=== PATIENT | male | born 1950 | race Caucasian/White ===

== ENCOUNTER 2017-11-15 07:57 | Observation (INO) | payer OTHER ==
--- NOTE | 2017-11-14 10:27 | Diagnostic Imaging Report ---
PROCEDURE: X-RAY CHEST, TWO VIEWS COMPARISON: None. INDICATIONS: PRE OPERATIVE CHEST X-RAY FOR C-SPINE SURGERY FINDINGS: The lungs are well-inflated. No airspace consolidation, pleural effusion, or pneumothorax. Scattered foci of linear opacity in the lower lobes compatible with subsegmental atelectasis. Tortuosity of the thoracic aorta with an otherwise normal cardiomediastinal contour. No pulmonary edema. No acute osseous abnormality. Multilevel degenerative disc changes of the thoracic spine. CONCLUSION: Subsegmental atelectasis in the lung bases. Otherwise no acute cardiopulmonary abnormality. Dictated by: Hitesh Shane M.D. on 11/14/2017 at 10:36 Electronically approved by: Hitesh Shane M.D. on 11/14/2017 at 10:36
[2017-11-14 10:36] LABS: BASOPHILS # (AUTO) 0.1 (0.0-0.1); BASOPHILS % 0.6 % (0.0-1.0); EOSINOPHILS # (AUTO) 0.2 (0.0-0.4); EOSINOPHILS % 2.4 % (0.0-6.0); HEMATOCRIT 47.3 % (38.2-49.6); HEMOGLOBIN 15.3 g/dL (14.0-18.0); LYMPHOCYTES # (AUTO) 1.9 (1.0-3.2); MEAN CORPUSCULAR HEMOGLOBIN 33.3 pg (28-32); MEAN CORPUSCULAR HGB CONC 32.3 g/dL (31-35); MEAN CORPUSCULAR VOLUME 102.8 fL (81-99); MONOCYTES # (AUTO) 1.3 (0.2-0.8); MONOCYTES % 14.2 % (4.4-11.3); NEUTROPHILS # (AUTO) 5.8 (2.1-6.9); NEUTROPHILS % 62.3 % (38.7-80.0); PLATELET COUNT 200 x10e3/uL (140-360); RED CELL DISTRIBUTION WIDTH 13.8 % (11.7-14.4)
[2017-11-14 10:45] LABS: INR 0.89; PROTHROMBIN TIME 12.5 seconds (11.9-14.5)
[2017-11-14 10:46] LABS: PARTIAL THROMBOPLASTIN TIME 28.1 seconds (23.8-35.5)
[2017-11-14 10:53] LABS: ANION GAP 15.3 mmol/L (8-16); CALCIUM 9.3 mg/dL (8.4-10.2); CREATININE, SERUM 1.23 mg/dL (0.72-1.25); POTASSIUM 4.3 mmol/L (3.5-5.1)
[~2017-11-15] VITALS: Ht 188 cm; Wt 131.5 kg
[~2017-11-15 07:57] MED LIST: ACIDOPHILUS1 EAC4 PO; AMLODIPINE BESY10 MG PO; ASPIR 8181 MG PO; ATENOLOL25 MG PO; ATORVASTATIN CA20 MG PO; CHLORZOXAZONE500 MG PO; COLACE100 MG PO; CRANBERRY PO; FISH OIL 500 M1 EAC1 PO; GARCINIA CAMBOGIA PO; LECITHIN1200 MG PO; LIDOCAINE HCL (LTA) 4 ML SOLN ONE; LORAZEPAM1 MG PO; LOSARTAN POTASS25 MG PO; MAGNESIUM400 MG PO; NIACIN500 MG PO; OXCARBAZEPINE150 MG PO; RANITIDINE HCL150 M1 PO; SERTRALINE HCL100 MG PO; ULTRAM 50MG50 MG PO
[2017-11-15] MEDS ORDERED: CEFAZOLIN SOD 2 GM/D5W 50ML 50 ML IV ONE (08:04)
[2017-11-15] MEDS ORDERED: LIDOCAINE 1% W/EPINEPHRINE 20 ML VIAL ONE (09:51)
[2017-11-15] MEDS ORDERED: BACITRACIN 50,000 UNIT VIAL ONE (09:52)
[2017-11-15] MEDS ORDERED: THROMBIN FOR SOLN 5,000 UNIT VIAL ONE (09:52)
[2017-11-15] MEDS ORDERED: GELATIN SPONGE SZ 100 ONE (09:52)
[2017-11-15] MEDS ORDERED: CEPACOL SORE THROAT LOZENGES PO PRN (12:45)
[2017-11-15] MEDS ORDERED: CARISOPRODOL 350 MG TAB PO PRN (12:45)
[2017-11-15] MEDS ORDERED: PROMETHAZINE HCL (IM) 25 MG/ML VIAL IM PRN (12:45)
[2017-11-15] MEDS ORDERED: MORPHINE SULFATE 5 MG/ML VIAL IM PRN (12:45)
[2017-11-15] MEDS ORDERED: OXYCODONE/ACETAMINOPHEN 5-325 1 EACH TABLET PO PRN (12:45)
[2017-11-15] MEDS ORDERED: MAGNESIUM/ALUMINUM/SIMETHICONE 30 ML UDC PO PRN (12:45)
[2017-11-15] MEDS ORDERED: HYDROMORPHONE 2MG/ML INJ IV PRN (12:45)
[2017-11-15] MEDS ORDERED: ONDANSETRON HCL INJ 2 MG/ML VIAL IV PRN (12:45)
[2017-11-15] MEDS ORDERED: ACETAMINOPHEN 325 MG TAB PO PRN (12:45)
--- NOTE | 2017-11-15 13:31 | Operative Report ---
DATE OF PROCEDURE: November 15, 2017 PREOPERATIVE DIAGNOSIS: C4-C5 and C5-C6 spondylosis and foraminal stenosis with radiculopathy, M50.120. POSTOPERATIVE DIAGNOSIS: C4-C5 and C5-C6 spondylosis and foraminal stenosis with radiculopathy, M50.120. PROCEDURES 1. C4-C5 anterior cervical diskectomy, microsurgical osteophyte resection and allograft fusion, 63871. 2. C5-C6 anterior cervical diskectomy, microsurgical osteophyte resection and allograft fusion, 36720. 3. Preparation of iliac crest allografts, 25935. 4. C4-C5 and C5-C6 anterior cervical plate and screw fixation, 33101. ANESTHESIA: General. INDICATIONS: The patient is a 67-year-old man who presents with broad-based disk osteophyte complexes at C4-5 and C5-6 associated with severe right-sided foraminal stenosis symptomatic with neck pain and right-sided cervical radiculopathy. He was taken to the operating room for a 2-level anterior cervical decompression and fusion. PROCEDURE: After induction of general anesthesia, the patient was placed on the operating table in the supine position. The right side of the neck was prepped and draped in a sterile fashion. The fluoroscopic C-arm was positioned in cross-table lateral orientation. A transverse incision was created on right side of the neck superimposed on the C5 vertebral body as determined by fluoroscopy. The platysma was divided in line with the incision. A subplatysmal dissection was carried out. An avascular plane of dissection was developed medial to the sternocleidomastoid muscle and was followed medial to the carotid sheath to the anterior border of the cervical spine. The deep cervical fascia was opened. The esophagus was retracted to the left. The attachments of the longus coli muscles to the anterolateral aspects of the vertebral bodies of C4, C5 and C6 were divided. The anterior longitudinal ligament was resected. Clifton posts were inserted into C4 and C6. The Clifton distractor was used to distract both disk spaces simultaneously. The anterior annuli of the disks were incised a #11 blade. The contents of both disks were thoroughly evacuated with angled curets and pituitary rongeurs. The posterior osteophytes were meticulously drilled with a 2-mm cutting bur on a high-speed drill until they were completely removed. The posterior annulus of the disk, herniated disk material, and the posterior longitudinal ligament were resected layer by layer until the dura was fully exposed and decompressed. The medial aspects of uncinate processes were resected bilaterally to further expose and decompress the origins of the corresponding nerve roots. After satisfactory decompression had been achieved, the endplates were prepared for fusion. Two pieces of tricortical iliac crest allograft were cut to the size and shapes of the disk spaces and were inserted the disk spaces under distraction and fluoroscopic guidance. The distraction was released, and the distraction posts were removed. A Synthes CSLP variable-type anterior cervical plate was selected and affixed to the vertebral bodies of C4, C5 and C6 with 3 pairs of 14 x 4.35 mm screws. All screw holes were first drilled and tapped under lateral fluoroscopic guidance. All screws were locked with the appropriate locking screws. An excellent construct was obtained. The wound was copiously irrigated with Bacitracin solution. Meticulous hemostasis was secured. Retractor was removed. The platysma was closed with 3-0 Vicryl sutures. The skin was closed with 4-0 Monocryl sutures in subcuticular fashion. Steri-Strips and dressing were applied. The patient was awakened, extubated and taken to the postanesthesia care unit in stable condition. No intraoperative complications were encountered. Estimated blood loss was 20 mL. Job#: [id number]
[2017-11-15] MEDS ORDERED: CEFAZOLIN SOD 1 GM/NS 50ML 50 ML IV SCH (14:00)
[2017-11-15] MEDS: LACTATED RINGER'S 1,000 ML IV SCH ×2 (14:30→21:05)
[2017-11-15 14:42] VITALS: BP 148/80
[2017-11-15] MEDS: OXCARBAZEPINE 300 MG TAB PO SCH ×3 (15:00→20:13)
[2017-11-15] MEDS: TRAMADOL HCL 50 MG TAB PO SCH ×2 (15:00→20:14)
[2017-11-15 15:32] VITALS: BP 148/80
[2017-11-15] MEDS: LORAZEPAM 1 MG TAB PO SCH (16:00)
[2017-11-15] MEDS: DOCUSATE SODIUM 100 MG CAP PO SCH (16:00)
[2017-11-15] MEDS: CEFAZOLIN SOD 1 GM VIAL IV SCH (17:03)
[2017-11-15] MEDS ORDERED: NEOSTIGMINE 5 MG/5ML SYR ONE (18:38)
[2017-11-15] MEDS ORDERED: ACETAMINOPHEN 1000 MG/100 ML IV ONE (18:38)
[2017-11-15] MEDS ORDERED: EPHEDRINE SULFATE INJ 50 MG/10 ML SYR ONE (18:38)
[2017-11-15] MEDS ORDERED: PROPOFOL IV EMULSION 10 MG/ML 20 ML VIAL ONE (18:38)
[2017-11-15] MEDS ORDERED: ONDANSETRON HCL INJ 2 MG/ML VIAL ONE (18:38)
[2017-11-15] MEDS ORDERED: ROCURONIUM BROMIDE 10 MG/ML 5ML VIAL ONE (18:38)
[2017-11-15] MEDS ORDERED: SEVOFLURANE INHAL SOLN 250 ML PEN BTL ONE (18:38)
[2017-11-15] MEDS ORDERED: PHENYLEPHRINE HCL 1% 10 MG/ML VIAL ONE (18:38)
[2017-11-15] MEDS ORDERED: DEXAMETHASONE SOD PHOS INJ 4 MG/ML VIAL ONE (18:38)
[2017-11-15] MEDS ORDERED: LIDOCAINE HCL 2% LOCAL INJ 5 ML SDV VIAL INJ ONE (18:38)
[2017-11-15] MEDS ORDERED: GLYCOPYRROLATE INJ 1MG/ 5 ML SYR ONE (18:38)
[2017-11-15] MEDS ORDERED: MIDAZOLAM HCL 2 MG/2 ML VIAL ONE (18:55)
[2017-11-15] MEDS ORDERED: FENTANYL CITRATE/PF 100MCG/2 ML INJ ONE (18:55)
[2017-11-15 19:35] VITALS: BP 150/78
[2017-11-15 20:00] VITALS: BP 150/78
[2017-11-15] MEDS ORDERED: ATORVASTATIN 20 MG TAB PO SCH (21:00)
[2017-11-15] MEDS ORDERED: ZOLPIDEM TARTRATE 5 MG TAB PO PRN (21:00)
[2017-11-16] VITALS: BP 159/81
[2017-11-16] MEDS: CEFAZOLIN SOD 1 GM VIAL IV SCH ×2 (02:28→10:00)
[2017-11-16 05:00] VITALS: BP 138/69
[2017-11-16] MEDS: LACTATED RINGER'S 1,000 ML IV SCH (05:59)
--- NOTE | 2017-11-16 06:38 | Diagnostic Imaging Report ---
C-SPINE 2 VIEWS AP LATERAL Comparison: None Clinical history: Status post surgery, C4-5 and C5-6 spondylosis Findings: Visualization through C6 on lateral view. Straightening of the normal cervical lordosis, likely positional given presence of a c-collar. Mild prevertebral soft tissue swelling. Postsurgical change status post C4-6 ACDF. Mild C3-4 and incompletely visualized C6-7 degenerative changes with uncovertebral hypertrophy. Impression: Expected postsurgical change status post C4-C6 ACDF. Signed by: Dr Monica Weber MD on 11/16/2017 6:35 AM
[2017-11-16 08:08] VITALS: BP 148/74
[2017-11-16 08:16] VITALS: BP 148/74
[2017-11-16] MEDS: DOCUSATE SODIUM 100 MG CAP PO SCH (08:34)
[2017-11-16] MEDS: LORAZEPAM 1 MG TAB PO SCH (08:34)
[2017-11-16] MEDS: TRAMADOL HCL 50 MG TAB PO SCH (08:35)
[2017-11-16] MEDS: OXCARBAZEPINE 300 MG TAB PO SCH (08:35)
[2017-11-16] MEDS ORDERED: LOSARTAN POTASSIUM 25 MG TAB PO SCH (09:00)
[2017-11-16] MEDS ORDERED: AMLODIPINE BESYLATE 10 MG TAB PO SCH (09:00)
[2017-11-16] MEDS ORDERED: SERTRALINE HCL 100 MG TAB PO SCH (09:00)
== END 2017-11-16 10:19 | disposition home or self-care (01) ==
LOC: OR 07:57 → IMCU 13:35
PROVIDERS: ADMIT Neurological Surgery; ATTEND Neurological Surgery
DX: M50.121 Cervical disc disorder at C4-C5 level with radiculopathy (principal); M47.22 Other spondylosis with radiculopathy, cervical region; M48.02 Spinal stenosis, cervical region; I10 Essential (primary) hypertension; E78.5 Hyperlipidemia, unspecified; F41.8 Other specified anxiety disorders; G47.33 Obstructive sleep apnea (adult) (pediatric); F31.9 Bipolar disorder, unspecified; M19.90 Unspecified osteoarthritis, unspecified site; Z01.810 Encounter for preprocedural cardiovascular examination; Z01.812 Encounter for preprocedural laboratory examination; Z01.818 Encounter for other preprocedural examination; Z79.82 Long term (current) use of aspirin; Z96.653 Presence of artificial knee joint, bilateral; Z88.5 Allergy status to narcotic agent; M50.321 Other cervical disc degeneration at C4-C5 level
CPT/HCPCS: 20931; 22551; 22552; 22845; 36415; 71046; 72040; 77003; 80048; 85025; 85610; 85730; 86850; 86900; 88304; 88311; 93005; C1713 ×4; C1768; G0378 ×2; J0690 ×2; J1100; J1170; J2001; J2250; J2270; J2370; J2405 ×2; J7120

== ENCOUNTER → 2019-01-15 | Outpatient (CLI) | payer OTHER ==
[~2019-01-15] MED LIST changes: -LIDOCAINE HCL (LTA) 4 ML SOLN ONE; +REGADENOSON 0.4 MG/5 ML SYR IV ONE
--- NOTE | 2019-01-21 15:02 | Myoview Stress Test ---
DATE OF STUDY: 01/15/2019 07:35:00 Stress Test - Treadmill ONLY STUDY PERFORMED: Lexiscan stress test. INDICATION: Chest pain. DESCRIPTION OF PROCEDURE: After informed consent, the patient was brought to the stress lab. He was given 11 mCi of technetium-99m Myoview and myocardial perfusion SPECT images were obtained in the horizontal long axis and short axis and vertical long axis. Subsequently, the patient was given 0.4 mg Lexiscan over 10 seconds. The patient was given 33 mCi of technetium-99m Myoview and myocardial perfusion SPECT images were obtained in the horizontal long axis and short axis and vertical long axis. Gating images were also obtained. The patient tolerated the procedure without any complications. REPORT: Baseline EKG shows sinus rhythm at 62 beats per minute. Normal axis. Normal intervals. No acute ST-T changes. Parameters: 1. Resting heart rate is 64 beats per minute. 2. Maximum heart rate is 80 beats per minute. 3. Resting blood pressure 121/72 mmHg. 4. Maximum blood pressure 126/78 mmHg. Reason for termination, end point attained. INTERPRETATION: 1. Negative chest pain. 2. Negative for arrhythmias. 3. Blood pressure response consistent with Lexiscan. 4. No significant ST-T changes seen during Lexiscan infusion compared to baseline. 5. Analysis SPECT images revealed uniform radioisotope uptake in all segments of myocardium without any significant perfusion defects. CONCLUSIONS: 1. No evidence of significant ischemia or infarction on this study. 2. No wall motion abnormalities. 3. Overall ejection fraction is 56%. MD JULIANNA Love/MODL /[id number]
== END ==
LOC: NM 07:23
DX: I10 Essential (primary) hypertension (principal); R94.31 Abnormal electrocardiogram [ECG] [EKG]
CPT/HCPCS: 78452; 93017; A9502; J2785

== ENCOUNTER 2021-12-12 04:08 | Observation (INO) | payer MEDICARE, OTHER ==
[~2021-12-12] VITALS: Ht 188 cm; Wt 151.5 kg
[~2021-12-12 04:08] MED LIST changes: -REGADENOSON 0.4 MG/5 ML SYR IV ONE
[2021-12-12 04:33] LABS: BASOPHILS # (AUTO) 0.1 (0.0-0.1); BASOPHILS % 1.1 % (0.0-1.0); EOSINOPHILS # (AUTO) 0.2 (0.0-0.4); HEMATOCRIT 41.2 % (38.2-49.6); HEMOGLOBIN 13.3 g/dL (14.0-18.0); LYMPHOCYTES # (AUTO) 1.6 (1.0-3.2); LYMPHOCYTES % 23.9 % (18.0-39.1); MEAN CORPUSCULAR HGB CONC 32.3 g/dL (31-35); MEAN CORPUSCULAR VOLUME 102.2 fL (81-99); MONOCYTES # (AUTO) 0.7 (0.2-0.8); NEUTROPHILS % 60.4 % (38.7-80.0); PLATELET COUNT 208 x10e3/uL (140-360); RED BLOOD COUNT 4.03 x10e6/uL (4.3-5.7); RED CELL DISTRIBUTION WIDTH 14.2 % (11.7-14.4)
[2021-12-12 04:44] LABS: CREATININE, SERUM 1.31 mg/dL (0.72-1.25)
[2021-12-12 04:48] LABS: CLARITY,URINE CLOUDY (CLEAR); COLOR,URINE AMBER (YELLOW)
[2021-12-12 04:50] LABS: LEUKOCYTE ESTERASE ,URINE TRACE (NEGATIVE); NITRITE,URINE POSITIVE (NEGATIVE); PROTEIN,URINE DIPSTICK >=300 (NEGATIVE)
[2021-12-12 04:51] LABS: BACTERIA,URINE MANY /HPF; EPITHELIAL CELLS,URINE MODERATE /LPF; KETONES,URINE NEGATIVE (NEGATIVE); RBC,URINE >50 /HPF (0-5); URINE UROBILINOGEN 0.2 mg/dL (0.2 - 1); WBC,URINE (MAN) >50 /HPF (0-5)
[2021-12-12 05:39] LABS: INR 0.95; PROTHROMBIN TIME 13.4 seconds (11.9-14.5)
[2021-12-12 05:40] LABS: PARTIAL THROMBOPLASTIN TIME 28.4 seconds (23.8-35.5)
[2021-12-12] MEDS ORDERED: PIPERACILLIN/TAZOBACTAM 3.375 GM in SODIUM CHLORIDE 0.9% 50ML 50 ML IV SCH (06:00)
[2021-12-12] MEDS ORDERED: ONDANSETRON HCL INJ 2MG/ML 2ML 2 MG/ML VIAL IV PRN (06:00)
[2021-12-12] MEDS ORDERED: HYDROMORPHONE 1MG/1ML INJ IV PRN (06:00)
[2021-12-12] MEDS: SODIUM CHLORIDE 0.9% 1000ML 1,000 ML IV SCH ×3 (06:21→19:52)
[2021-12-12 08:00] VITALS: BP 142/77
[2021-12-12] MEDS ORDERED: QUETIAPINE FUM100 MG PO (08:12)
[2021-12-12] MEDS ORDERED: QUETIAPINE FUMA25 MG PO (08:12)
[2021-12-12] MEDS ORDERED: CYCLOBENZAPRINE5 MG PO (08:15)
[2021-12-12 08:19] VITALS: BP 142/77
[2021-12-12] MEDS ORDERED: TRAMADOL HCL 50 MG TAB PO PRN (08:45)
[2021-12-12] MEDS ORDERED: HYDRALAZINE HCL 20 MG/ML VIAL IV PRN (08:45)
[2021-12-12] MEDS ORDERED: CEFTRIAXONE 1 GM in SODIUM CHLORIDE 0.9% 50ML 50 ML IV SCH (09:00)
[2021-12-12] MEDS: NON-FORMULARY MEDICATION (Ranitidine Hcl 150 MG) PO SCH ×2 (09:00→17:00)
[2021-12-12] MEDS: LORAZEPAM 0.5 MG TAB PO SCH ×3 (09:00→22:04)
[2021-12-12] MEDS: SERTRALINE HCL 100 MG TAB PO SCH (09:00)
[2021-12-12] MEDS: OXCARBAZEPINE 300 MG TAB PO SCH ×4 (11:00→22:05)
[2021-12-12] MEDS: LOSARTAN POTASSIUM 25 MG TAB PO SCH ×2 (11:00→17:00)
[2021-12-12] MEDS: ATENOLOL 50 MG TAB PO SCH (11:00)
[2021-12-12] MEDS: CEFTRIAXONE 1 GM in SODIUM CHLORIDE 0.9% 50ML 50 ML IV SCH (11:00)
[2021-12-12] MEDS: AMLODIPINE BESYLATE 10 MG TAB PO SCH (11:00)
[2021-12-12] MEDS: DOCUSATE SODIUM 100 MG CAP PO SCH ×2 (11:00→17:00)
[2021-12-12] MEDS: QUETIAPINE FUMARATE 25 MG TAB PO SCH (11:00)
[2021-12-12 12:00] VITALS: BP 152/82
[2021-12-12 16:34] VITALS: BP 141/77
[2021-12-12 20:00] VITALS: BP 133/73
[2021-12-12] MEDS ORDERED: ATORVASTATIN 20 MG TAB PO SCH (21:00)
[2021-12-12] MEDS ORDERED: QUETIAPINE FUMARATE 100 MG TAB PO SCH (21:00)
[2021-12-13] VITALS: BP 148/82
[2021-12-13] MEDS: SODIUM CHLORIDE 0.9% 1000ML 1,000 ML IV SCH ×2 (02:00→12:15)
[2021-12-13 03:57] VITALS: BP 138/75
[2021-12-13 05:12] VITALS: BP 138/75
[2021-12-13 06:21] LABS: BASOPHILS % 0.6 % (0.0-1.0); EOSINOPHILS # (AUTO) 0.2 (0.0-0.4); HEMATOCRIT 37.5 % (38.2-49.6); HEMOGLOBIN 12.1 g/dL (14.0-18.0); LYMPHOCYTES # (AUTO) 1.9 (1.0-3.2); LYMPHOCYTES % 26.6 % (18.0-39.1); MEAN CORPUSCULAR HEMOGLOBIN 32.9 pg (28-32); MEAN CORPUSCULAR HGB CONC 32.3 g/dL (31-35); MEAN CORPUSCULAR VOLUME 101.9 fL (81-99); MONOCYTES # (AUTO) 0.9 (0.2-0.8); MONOCYTES % 12.9 % (4.4-11.3); NEUTROPHILS # (AUTO) 3.9 (2.1-6.9); NEUTROPHILS % 56.6 % (38.7-80.0); PLATELET COUNT 166 x10e3/uL (140-360); RED BLOOD COUNT 3.68 x10e6/uL (4.3-5.7); RED CELL DISTRIBUTION WIDTH 14.3 % (11.7-14.4)
[2021-12-13 06:52] LABS: ANION GAP 11.7 mmol/L (8-16); CALCIUM 8.2 mg/dL (8.4-10.2); CREATININE, SERUM 1.24 mg/dL (0.72-1.25); POTASSIUM 3.7 mmol/L (3.5-5.1)
[2021-12-13 08:00] VITALS: BP 154/83
[2021-12-13] MEDS: CEFTRIAXONE 1 GM in SODIUM CHLORIDE 0.9% 50ML 50 ML IV SCH (08:52)
[2021-12-13] MEDS: DOCUSATE SODIUM 100 MG CAP PO SCH (08:53)
[2021-12-13] MEDS: NON-FORMULARY MEDICATION (Ranitidine Hcl 150 MG) PO SCH (08:53)
[2021-12-13] MEDS: LOSARTAN POTASSIUM 25 MG TAB PO SCH (08:53)
[2021-12-13] MEDS: LORAZEPAM 0.5 MG TAB PO SCH ×2 (08:53→15:12)
[2021-12-13] MEDS: AMLODIPINE BESYLATE 10 MG TAB PO SCH (08:54)
[2021-12-13] MEDS: QUETIAPINE FUMARATE 25 MG TAB PO SCH (08:57)
[2021-12-13] MEDS: ATENOLOL 50 MG TAB PO SCH (08:58)
[2021-12-13] MEDS: SERTRALINE HCL 100 MG TAB PO SCH (08:58)
[2021-12-13] MEDS: OXCARBAZEPINE 300 MG TAB PO SCH ×2 (08:58→12:41)
[2021-12-13 12:00] VITALS: BP 139/78
[2021-12-13] MEDS ORDERED: ONDANSETRON HCL 4 MG ORAL DISINTEGRATING TAB PO PRN (12:15)
== END 2021-12-13 15:09 | disposition home or self-care (01) ==
LOC: ER 04:12 → ERHOLD 05:59 → INTOOBSV 05:59 → MED/SURG 07:20
PROVIDERS: ADMIT Internal Medicine; ATTEND Internal Medicine
DX: N13.6 Pyonephrosis (principal); I10 Essential (primary) hypertension; E78.5 Hyperlipidemia, unspecified; E66.9 Obesity, unspecified; Z87.442 Personal history of urinary calculi; N28.1 Cyst of kidney, acquired; Z91.19 Patient's noncompliance with other medical treatment and regimen; D68.9 Coagulation defect, unspecified; N18.9 Chronic kidney disease, unspecified; K57.30 Diverticulosis of large intestine without perforation or abscess without bleeding; Z68.41 Body mass index [BMI] 40.0-44.9, adult; Z20.822 Contact with and (suspected) exposure to COVID-19
CPT/HCPCS: 36415; 74018; 74176; 78707; 80048; 81001; 85025; 85610; 85730; 87086; 99284; A9562; G0378; J0696; J2543; J7030; U0002

== ENCOUNTER → 2021-12-28 | Day surgery (SDC) | payer MEDICARE ==
[~2021-12-28] MED LIST changes: +CEFTRIAXONE 1 GM VIAL ONE; +CYCLOBENZAPRINE5 MG PO; +DEXAMETHASONE SOD PHOS INJ 4 MG/ML SDV ONE; +FENTANYL CITRATE/PF 100MCG/2 ML INJ ONE; +KETOROLAC TROMETHAMINE 30 MG/ML VIAL ONE; +LIDOCAINE HCL 2% LOCAL INJ 5 ML SDV VIAL INJ ONE; +MIDAZOLAM HCL 2 MG/2 ML VIAL ONE; +ONDANSETRON HCL INJ 2MG/ML 2ML 2 MG/ML VIAL ONE; +POVIDONE IODINE 0.05% 0.05 % ML PO ONE; +PROPOFOL IV EMULSION 10 MG/ML 20 ML VIAL ONE; +QUETIAPINE FUM100 MG PO; +QUETIAPINE FUMA25 MG PO; +SEVOFLURANE INHAL SOLN 250 ML PEN BTL ONE; +SODIUM CHLORIDE 0.9% 50ML 50 ML ONE
[2021-12-28 08:30] VITALS: BP 138/76
== END | disposition home or self-care (01) ==
LOC: OR 06:13
PROVIDERS: ATTEND Urology
DX: N20.0 Calculus of kidney (principal); N40.1 Benign prostatic hyperplasia with lower urinary tract symptoms; N13.8 Other obstructive and reflux uropathy; N28.1 Cyst of kidney, acquired; N39.0 Urinary tract infection, site not specified; N13.30 Unspecified hydronephrosis; I12.9 Hypertensive chronic kidney disease with stage 1 through stage 4 chronic kidney disease, or unspecified chronic kidney disease; N18.9 Chronic kidney disease, unspecified; G47.33 Obstructive sleep apnea (adult) (pediatric); E78.5 Hyperlipidemia, unspecified; M19.90 Unspecified osteoarthritis, unspecified site; E66.01 Morbid (severe) obesity due to excess calories; F31.9 Bipolar disorder, unspecified; F41.9 Anxiety disorder, unspecified; Z88.6 Allergy status to analgesic agent; Z01.810 Encounter for preprocedural cardiovascular examination; Z01.812 Encounter for preprocedural laboratory examination; Z01.818 Encounter for other preprocedural examination; Z20.822 Contact with and (suspected) exposure to COVID-19; Z79.82 Long term (current) use of aspirin; Z79.899 Other long term (current) drug therapy; Z68.41 Body mass index [BMI] 40.0-44.9, adult; Z84.1 Family history of disorders of kidney and ureter
CPT/HCPCS: 50590; 71046; 74018; 93005; J0696; J1100; J1885; J2001; J2250; J2405; J2704; J3010; U0002

== ENCOUNTER → 2022-01-11 | Outpatient (CLI) | payer MEDICARE ==
[~2022-01-11] MED LIST changes: -CEFTRIAXONE 1 GM VIAL ONE; -DEXAMETHASONE SOD PHOS INJ 4 MG/ML SDV ONE; -FENTANYL CITRATE/PF 100MCG/2 ML INJ ONE; -KETOROLAC TROMETHAMINE 30 MG/ML VIAL ONE; -LIDOCAINE HCL 2% LOCAL INJ 5 ML SDV VIAL INJ ONE; -MIDAZOLAM HCL 2 MG/2 ML VIAL ONE; -ONDANSETRON HCL INJ 2MG/ML 2ML 2 MG/ML VIAL ONE; -POVIDONE IODINE 0.05% 0.05 % ML PO ONE; -PROPOFOL IV EMULSION 10 MG/ML 20 ML VIAL ONE; -SEVOFLURANE INHAL SOLN 250 ML PEN BTL ONE; -SODIUM CHLORIDE 0.9% 50ML 50 ML ONE
== END ==
LOC: RAD 13:01
PROVIDERS: ATTEND Urology
DX: N20.0 Calculus of kidney (principal)
CPT/HCPCS: 74018

== ENCOUNTER 2022-04-28 05:18 | Observation (INO) | payer MEDICARE ==
[2022-04-26 11:43] LABS: BASOPHILS # (AUTO) 0.1 (0.0-0.1); BASOPHILS % 0.6 % (0.0-1.0); EOSINOPHILS # (AUTO) 0.1 (0.0-0.4); EOSINOPHILS % 1.4 % (0.0-6.0); HEMATOCRIT 41.7 % (38.2-49.6); HEMOGLOBIN 13.8 g/dL (14.0-18.0); LYMPHOCYTES # (AUTO) 1.3 (1.0-3.2); LYMPHOCYTES % 14.6 % (18.0-39.1); MEAN CORPUSCULAR HEMOGLOBIN 32.9 pg (28-32); MEAN CORPUSCULAR HGB CONC 33.1 g/dL (31-35); MEAN CORPUSCULAR VOLUME 99.3 fL (81-99); MONOCYTES # (AUTO) 1.2 (0.2-0.8); MONOCYTES % 13.8 % (4.4-11.3); NEUTROPHILS % 69.1 % (38.7-80.0); PLATELET COUNT 185 x10e3/uL (140-360); RED CELL DISTRIBUTION WIDTH 14.3 % (11.7-14.4)
[~2022-04-28] VITALS: Ht 188 cm; Wt 144.2 kg
[~2022-04-28 05:18] MED LIST changes: +IBUPROFEN400 MG PO
[2022-04-28] MEDS ORDERED: CEFTRIAXONE 1 GM VIAL ONE ×2 (06:12→06:56)
[2022-04-28] MEDS ORDERED: ACETAMINOPHEN/CODEINE 300MG - 30MG TAB PO PRN (07:30)
[2022-04-28 08:18] VITALS: BP 117/67
[2022-04-28 08:20] VITALS: BP 117/67
[2022-04-28] MEDS ORDERED: TRAMADOL HCL 50 MG TAB PO PRN (09:15)
[2022-04-28 12:00] VITALS: BP 145/79
[2022-04-28] MEDS: OXCARBAZEPINE 300 MG TAB PO SCH ×3 (12:48→21:00)
[2022-04-28] MEDS: LORAZEPAM 0.5 MG TAB PO SCH ×2 (14:56→21:00)
[2022-04-28 16:43] VITALS: BP 132/80
[2022-04-28] MEDS: LOSARTAN POTASSIUM 25 MG TAB PO SCH (17:32)
[2022-04-28 20:00] VITALS: BP 131/80
[2022-04-28 21:00] VITALS: BP 131/80
[2022-04-28] MEDS ORDERED: QUETIAPINE FUMARATE 100 MG TAB PO SCH (21:00)
[2022-04-28] MEDS ORDERED: ATORVASTATIN 20 MG TAB PO SCH (21:00)
[2022-04-29] VITALS: BP 137/66
[2022-04-29 04:00] VITALS: BP 147/85
[2022-04-29 08:13] VITALS: BP 133/79
[2022-04-29] MEDS ORDERED: SERTRALINE HCL 100 MG TAB PO SCH (09:00)
[2022-04-29] MEDS: LORAZEPAM 0.5 MG TAB PO SCH (09:00)
[2022-04-29] MEDS: LOSARTAN POTASSIUM 25 MG TAB PO SCH (09:00)
[2022-04-29] MEDS ORDERED: AMLODIPINE BESYLATE 10 MG TAB PO SCH (09:00)
[2022-04-29] MEDS ORDERED: QUETIAPINE FUMARATE 25 MG TAB PO SCH (09:00)
[2022-04-29] MEDS: OXCARBAZEPINE 300 MG TAB PO SCH (09:00)
[2022-04-29] MEDS ORDERED: ATENOLOL 50 MG TAB PO SCH (09:00)
== END 2022-04-29 11:11 | disposition home or self-care (01) ==
LOC: OR 05:18 → PACU V 07:34 → MED/SURG2 08:18
PROVIDERS: ADMIT Internal Medicine; ATTEND Internal Medicine
DX: N13.2 Hydronephrosis with renal and ureteral calculous obstruction (principal); E66.01 Morbid (severe) obesity due to excess calories; N40.1 Benign prostatic hyperplasia with lower urinary tract symptoms; N28.1 Cyst of kidney, acquired; N39.0 Urinary tract infection, site not specified; Z68.41 Body mass index [BMI] 40.0-44.9, adult; G47.33 Obstructive sleep apnea (adult) (pediatric); I12.9 Hypertensive chronic kidney disease with stage 1 through stage 4 chronic kidney disease, or unspecified chronic kidney disease; N18.9 Chronic kidney disease, unspecified; E78.5 Hyperlipidemia, unspecified; F41.9 Anxiety disorder, unspecified; Z01.810 Encounter for preprocedural cardiovascular examination; Z01.812 Encounter for preprocedural laboratory examination; Z20.822 Contact with and (suspected) exposure to COVID-19
CPT/HCPCS: 0223U; 36415; 50590; 74018; 85025; 93005; G0378 ×2; J0696

== ENCOUNTER → 2022-06-05 | Outpatient (CLI) | payer MEDICARE | LOC: RAD 10:55 | PROVIDERS: ATTEND Urology | DX: N20.0 Calculus of kidney (principal) | CPT/HCPCS: 74018 ==

== ENCOUNTER 2022-09-12 03:04 | Inpatient (IN) | payer MEDICARE ==
[~2022-09-12] VITALS: Ht 188 cm; Wt 144.2 kg
[2022-09-12] MEDS ORDERED: SODIUM CHLORIDE 0.9% 1000ML 1,000 ML IV STA ×2 (03:08→03:09)
[2022-09-12] MEDS ORDERED: KETOROLAC TROMETHAMINE 30 MG/ML VIAL IV STA (03:09)
[2022-09-12] MEDS ORDERED: ONDANSETRON HCL INJ 2MG/ML 2ML 2 MG/ML VIAL IV STA (03:09)
[2022-09-12 03:34] LABS: BASOPHILS # (AUTO) 0.1 (0.0-0.1); BASOPHILS % 0.7 % (0.0-1.0); EOSINOPHILS # (AUTO) 0.3 (0.0-0.4); EOSINOPHILS % 2.6 % (0.0-6.0); HEMATOCRIT 44.7 % (38.2-49.6); HEMOGLOBIN 14.4 g/dL (14.0-18.0); LYMPHOCYTES # (AUTO) 2.6 (1.0-3.2); LYMPHOCYTES % 27.5 % (18.0-39.1); MEAN CORPUSCULAR HEMOGLOBIN 33.7 pg (28-32); MEAN CORPUSCULAR HGB CONC 32.2 g/dL (31-35); MEAN CORPUSCULAR VOLUME 104.7 fL (81-99); MONOCYTES # (AUTO) 1.4 (0.2-0.8); MONOCYTES % 15.1 % (4.4-11.3); NEUTROPHILS # (AUTO) 5.1 (2.1-6.9); NEUTROPHILS % 53.6 % (38.7-80.0); PLATELET COUNT 239 x10e3/uL (140-360); RED BLOOD COUNT 4.27 x10e6/uL (4.3-5.7); RED CELL DISTRIBUTION WIDTH 13.7 % (11.7-14.4)
[2022-09-12 03:45] LABS: CLARITY,URINE CLOUDY (CLEAR); COLOR,URINE YELLOW (YELLOW); KETONES,URINE NEGATIVE (NEGATIVE); LEUKOCYTE ESTERASE ,URINE 1+ (NEGATIVE); NITRITE,URINE NEGATIVE (NEGATIVE); PROTEIN,URINE DIPSTICK 2+ (NEGATIVE); URINE UROBILINOGEN 0.2 mg/dL (0.2 - 1)
[2022-09-12 03:46] LABS: ALBUMIN 4.7 g/dL (3.5-5.0); ALBUMIN/GLOBULIN RATIO 1.5 (0.8-2.0); ANION GAP 17.5 mmol/L (8-16); CALCIUM 9.4 mg/dL (8.4-10.2); CREATININE, SERUM 1.47 mg/dL (0.72-1.25); POTASSIUM 3.5 mmol/L (3.5-5.1)
[2022-09-12 03:53] LABS: CREATINE KINASE MB 3.7 ng/mL (0-5.0)
[2022-09-12 04:00] LABS: BACTERIA,URINE MANY /HPF; EPITHELIAL CELLS,URINE FEW /LPF; RBC,URINE >50 /HPF (0-5); RENAL EPITHELIAL CELLS,URINE FEW; WBC,URINE (MAN) >50 /HPF (0-5)
[2022-09-12] MEDS: SODIUM CHLORIDE 0.9% 1000ML 1,000 ML IV SCH ×3 (04:26→21:03)
[2022-09-12] MEDS ORDERED: PIPERACILLIN/TAZOBACTAM 3.375 GM VIAL ONE (04:29)
[2022-09-12] MEDS: HYDROMORPHONE 1MG/1ML INJ IV PRN ×4 (04:30→17:45)
[2022-09-12] MEDS: ONDANSETRON HCL INJ 2MG/ML 2ML 2 MG/ML VIAL IV PRN ×2 (07:38→12:52)
[2022-09-12] MEDS ORDERED: TRAMADOL HCL 50 MG TAB PO PRN (09:00)
[2022-09-12] MEDS ORDERED: CYCLOBENZAPRINE HCL 10 MG TAB PO PRN (09:00)
[2022-09-12] MEDS: LOSARTAN POTASSIUM 25 MG TAB PO SCH ×2 (11:06→17:44)
[2022-09-12] MEDS: QUETIAPINE FUMARATE 25 MG TAB PO SCH (11:07)
[2022-09-12] MEDS: AMLODIPINE BESYLATE 10 MG TAB PO SCH (11:07)
[2022-09-12] MEDS: OXCARBAZEPINE 300 MG TAB PO SCH ×4 (11:07→21:43)
[2022-09-12] MEDS: SERTRALINE HCL 100 MG TAB PO SCH (11:07)
[2022-09-12 15:30] VITALS: BP 137/75
[2022-09-12 16:39] VITALS: BP 137/75
[2022-09-12 20:00] VITALS: BP 160/86
[2022-09-12 21:00] VITALS: BP 160/86
[2022-09-12] MEDS: ATENOLOL 50 MG TAB PO SCH (21:16)
[2022-09-12] MEDS: QUETIAPINE FUMARATE 100 MG TAB PO SCH (21:17)
[2022-09-12] MEDS: ATORVASTATIN 20 MG TAB PO SCH (21:17)
[2022-09-13] VITALS: BP 147/80
[2022-09-13 04:00] VITALS: BP 144/90
[2022-09-13] MEDS: SODIUM CHLORIDE 0.9% 1000ML 1,000 ML IV SCH ×3 (04:15→20:15)
[2022-09-13 06:16] LABS: BASOPHILS # (AUTO) 0.1 (0.0-0.1); BASOPHILS % 0.7 % (0.0-1.0); EOSINOPHILS # (AUTO) 0.3 (0.0-0.4); EOSINOPHILS % 3.8 % (0.0-6.0); HEMATOCRIT 35.5 % (38.2-49.6); HEMOGLOBIN 11.9 g/dL (14.0-18.0); LYMPHOCYTES # (AUTO) 1.2 (1.0-3.2); MEAN CORPUSCULAR HEMOGLOBIN 33.7 pg (28-32); MEAN CORPUSCULAR HGB CONC 33.5 g/dL (31-35); MEAN CORPUSCULAR VOLUME 100.6 fL (81-99); MONOCYTES # (AUTO) 1.2 (0.2-0.8); MONOCYTES % 15.9 % (4.4-11.3); NEUTROPHILS # (AUTO) 4.6 (2.1-6.9); NEUTROPHILS % 63.1 % (38.7-80.0); PLATELET COUNT 171 x10e3/uL (140-360); RED BLOOD COUNT 3.53 x10e6/uL (4.3-5.7); RED CELL DISTRIBUTION WIDTH 14.1 % (11.7-14.4)
[2022-09-13 06:31] LABS: ALBUMIN 3.7 g/dL (3.5-5.0); ALBUMIN/GLOBULIN RATIO 1.5 (0.8-2.0); ANION GAP 14.6 mmol/L (8-16); CALCIUM 8.6 mg/dL (8.4-10.2); CREATININE, SERUM 1.8 mg/dL (0.72-1.25); POTASSIUM 3.6 mmol/L (3.5-5.1)
[2022-09-13] MEDS: AMLODIPINE BESYLATE 10 MG TAB PO SCH (08:02)
[2022-09-13] MEDS: QUETIAPINE FUMARATE 25 MG TAB PO SCH (08:02)
[2022-09-13] MEDS: LOSARTAN POTASSIUM 25 MG TAB PO SCH ×2 (08:02→17:41)
[2022-09-13] MEDS: HYDROMORPHONE 1MG/1ML INJ IV PRN ×3 (08:03→19:40)
[2022-09-13] MEDS: OXCARBAZEPINE 300 MG TAB PO SCH ×4 (08:03→19:40)
[2022-09-13] MEDS: SERTRALINE HCL 100 MG TAB PO SCH (08:03)
[2022-09-13 08:14] VITALS: BP 130/72
[2022-09-13 17:00] VITALS: BP 150/69
[2022-09-13] MEDS: ATENOLOL 50 MG TAB PO SCH (19:41)
[2022-09-13] MEDS: ATORVASTATIN 20 MG TAB PO SCH (19:42)
[2022-09-13] MEDS: QUETIAPINE FUMARATE 100 MG TAB PO SCH (19:49)
[2022-09-13 20:00] VITALS: BP 134/97
[2022-09-13 21:00] VITALS: BP 134/97
[2022-09-13] MEDS ORDERED: DOCUSATE SODIUM 100 MG CAP PO PRN (23:30)
[2022-09-13] MEDS ORDERED: DIPHENHYDRAMINE HCL 25 MG CAP PO PRN (23:30)
[2022-09-13] MEDS ORDERED: LIDOCAINE 4% PATCH TP PRN (23:30)
[2022-09-13] MEDS ORDERED: HYDRALAZINE HCL 20 MG/ML VIAL IV PRN (23:30)
[2022-09-13] MEDS ORDERED: ACETAMINOPHEN 325 MG TAB PO PRN (23:30)
[2022-09-13] MEDS ORDERED: POTASSIUM CHLORIDE 20 MEQ TAB CR PO PRN (23:30)
[2022-09-13] MEDS ORDERED: CHLORASEPTIC SPRAY 177 ML BTL MM PRN (23:30)
[2022-09-13] MEDS ORDERED: BENZONATATE 100 MG CAP PO PRN (23:30)
[2022-09-13] MEDS ORDERED: MELATONIN 5 MG TABLET PO PRN (23:30)
[2022-09-13] MEDS ORDERED: ALBUTEROL/IPRATROPIUM 3 ML NEB NEB PRN (23:30)
[2022-09-14] MEDS: SODIUM CHLORIDE 0.9% 1000ML 1,000 ML IV SCH ×3 (04:15→21:04)
[2022-09-14] MEDS: HYDROMORPHONE 1MG/1ML INJ IV PRN ×4 (04:29→22:19)
[2022-09-14 04:40] VITALS: BP 174/95
[2022-09-14 07:58] VITALS: BP 160/79
[2022-09-14 07:59] VITALS: BP 160/79
[2022-09-14] MEDS: OXCARBAZEPINE 300 MG TAB PO SCH ×4 (08:58→21:08)
[2022-09-14] MEDS: LOSARTAN POTASSIUM 25 MG TAB PO SCH ×2 (08:58→16:33)
[2022-09-14] MEDS: SERTRALINE HCL 100 MG TAB PO SCH (08:58)
[2022-09-14] MEDS: PANTOPRAZOLE SOD 40 MG TABEC PO SCH (08:59)
[2022-09-14] MEDS: QUETIAPINE FUMARATE 25 MG TAB PO SCH (08:59)
[2022-09-14] MEDS: AMLODIPINE BESYLATE 10 MG TAB PO SCH (08:59)
[2022-09-14] MEDS: ONDANSETRON HCL INJ 2MG/ML 2ML 2 MG/ML VIAL IV PRN ×2 (12:42→22:18)
[2022-09-14] MEDS: SIMETHICONE 80 MG CHEW PO PRN ×2 (12:47→21:00)
[2022-09-14 16:19] VITALS: BP 168/89
[2022-09-14] MEDS: ENOXAPARIN SOD INJ 40 MG/0.4 ML SYR SC SCH (16:34)
[2022-09-14 20:00] VITALS: BP 144/88
[2022-09-14] MEDS: ATORVASTATIN 20 MG TAB PO SCH (21:04)
[2022-09-14] MEDS: ATENOLOL 50 MG TAB PO SCH (21:07)
[2022-09-14] MEDS: QUETIAPINE FUMARATE 100 MG TAB PO SCH (21:08)
[2022-09-15] VITALS (9 sets, daily range): BP systolic 143–177; BP diastolic 65–90
[2022-09-15] MEDS: SODIUM CHLORIDE 0.9% 1000ML 1,000 ML IV SCH ×2 (04:15→12:32)
[2022-09-15 06:31] LABS: BASOPHILS # (AUTO) 0.1 (0.0-0.1); BASOPHILS % 0.8 % (0.0-1.0); EOSINOPHILS # (AUTO) 0.3 (0.0-0.4); EOSINOPHILS % 2.8 % (0.0-6.0); HEMATOCRIT 36.8 % (38.2-49.6); HEMOGLOBIN 12.3 g/dL (14.0-18.0); LYMPHOCYTES # (AUTO) 1.4 (1.0-3.2); LYMPHOCYTES % 15.3 % (18.0-39.1); MEAN CORPUSCULAR HEMOGLOBIN 33.7 pg (28-32); MEAN CORPUSCULAR HGB CONC 33.4 g/dL (31-35); MEAN CORPUSCULAR VOLUME 100.8 fL (81-99); MONOCYTES # (AUTO) 1.2 (0.2-0.8); MONOCYTES % 12.8 % (4.4-11.3); NEUTROPHILS # (AUTO) 6.1 (2.1-6.9); NEUTROPHILS % 67.9 % (38.7-80.0); PLATELET COUNT 184 x10e3/uL (140-360); RED BLOOD COUNT 3.65 x10e6/uL (4.3-5.7); RED CELL DISTRIBUTION WIDTH 14.1 % (11.7-14.4)
[2022-09-15 06:45] LABS: CALCIUM 9.2 mg/dL (8.4-10.2); CREATININE, SERUM 1.34 mg/dL (0.72-1.25)
[2022-09-15] MEDS: OXCARBAZEPINE 300 MG TAB PO SCH ×4 (09:28→20:24)
[2022-09-15] MEDS: PANTOPRAZOLE SOD 40 MG TABEC PO SCH (09:28)
[2022-09-15] MEDS: QUETIAPINE FUMARATE 25 MG TAB PO SCH (09:28)
[2022-09-15] MEDS: LOSARTAN POTASSIUM 25 MG TAB PO SCH ×2 (09:29→16:38)
[2022-09-15] MEDS: AMLODIPINE BESYLATE 10 MG TAB PO SCH (09:29)
[2022-09-15] MEDS: SERTRALINE HCL 100 MG TAB PO SCH ×2 (09:29→20:22)
[2022-09-15] MEDS: HYDROMORPHONE 1MG/1ML INJ IV PRN ×2 (09:31→18:35)
[2022-09-15] MEDS: ONDANSETRON HCL INJ 2MG/ML 2ML 2 MG/ML VIAL IV PRN (13:00)
[2022-09-15] MEDS: ENOXAPARIN SOD INJ 40 MG/0.4 ML SYR SC SCH (16:38)
[2022-09-15] MEDS: ATENOLOL 50 MG TAB PO SCH (20:23)
[2022-09-15] MEDS: ATORVASTATIN 20 MG TAB PO SCH (20:24)
[2022-09-15] MEDS: QUETIAPINE FUMARATE 100 MG TAB PO SCH (20:24)
[2022-09-15] MEDS: LORAZEPAM 0.5 MG TAB PO PRN (20:28)
[2022-09-16] MEDS: SODIUM CHLORIDE 0.9% 1000ML 1,000 ML IV SCH ×4 (02:42→23:45)
[2022-09-16] MEDS: NIFEDIPINE CR 30 MG TAB PO SCH ×2 (02:43→15:20)
[2022-09-16 04:01] VITALS: BP_SYST 142
[2022-09-16 07:30] LABS: BASOPHILS # (AUTO) 0.1 (0.0-0.1); BASOPHILS % 0.8 % (0.0-1.0); EOSINOPHILS # (AUTO) 0.2 (0.0-0.4); EOSINOPHILS % 3.6 % (0.0-6.0); HEMATOCRIT 36.9 % (38.2-49.6); HEMOGLOBIN 11.5 g/dL (14.0-18.0); LYMPHOCYTES # (AUTO) 1.3 (1.0-3.2); LYMPHOCYTES % 20.5 % (18.0-39.1); MEAN CORPUSCULAR HEMOGLOBIN 33.5 pg (28-32); MEAN CORPUSCULAR HGB CONC 31.2 g/dL (31-35); MEAN CORPUSCULAR VOLUME 107.6 fL (81-99); MONOCYTES # (AUTO) 0.8 (0.2-0.8); MONOCYTES % 13.1 % (4.4-11.3); NEUTROPHILS % 61.8 % (38.7-80.0); PLATELET COUNT 170 x10e3/uL (140-360); RED BLOOD COUNT 3.43 x10e6/uL (4.3-5.7); RED CELL DISTRIBUTION WIDTH 14.1 % (11.7-14.4)
[2022-09-16] MEDS: PANTOPRAZOLE SOD 40 MG TABEC PO SCH (07:30)
[2022-09-16 07:49] LABS: ANION GAP 15.9 mmol/L (8-16); CALCIUM 8.8 mg/dL (8.4-10.2); CREATININE, SERUM 1.27 mg/dL (0.72-1.25); POTASSIUM 3.9 mmol/L (3.5-5.1)
[2022-09-16 08:12] VITALS: BP 149/86
[2022-09-16 08:31] VITALS: BP 149/86
[2022-09-16] MEDS: LOSARTAN POTASSIUM 25 MG TAB PO SCH ×2 (09:00→15:16)
[2022-09-16] MEDS: OXCARBAZEPINE 300 MG TAB PO SCH ×4 (09:00→19:48)
[2022-09-16] MEDS: ONDANSETRON HCL INJ 2MG/ML 2ML 2 MG/ML VIAL IV PRN (09:39)
[2022-09-16] MEDS: HYDROMORPHONE 1MG/1ML INJ IV PRN ×4 (09:41→19:48)
[2022-09-16 12:35] VITALS: BP 160/84
[2022-09-16] MEDS ORDERED: IOPAMIDOL 300MG/ML 100 ML INFUS..BTL IV ONE (13:02)
[2022-09-16] MEDS ORDERED: IBUPROFEN600 MG PO (13:46)
[2022-09-16] MEDS: LORAZEPAM 0.5 MG TAB PO PRN (15:14)
[2022-09-16] MEDS: QUETIAPINE FUMARATE 25 MG TAB PO SCH (15:14)
[2022-09-16 16:35] VITALS: BP 171/71
[2022-09-16] MEDS: ENOXAPARIN SOD INJ 40 MG/0.4 ML SYR SC SCH (16:37)
[2022-09-16] MEDS: QUETIAPINE FUMARATE 100 MG TAB PO SCH (19:48)
[2022-09-16] MEDS: ATORVASTATIN 20 MG TAB PO SCH (19:48)
[2022-09-16 20:00] VITALS: BP 144/75
[2022-09-16] MEDS: ATENOLOL 50 MG TAB PO SCH (23:16)
[2022-09-17] VITALS: BP 138/71
[2022-09-17 04:00] VITALS: BP 153/83
[2022-09-17] MEDS: SODIUM CHLORIDE 0.9% 1000ML 1,000 ML IV SCH (05:30)
[2022-09-17 08:18] VITALS: BP 165/95
[2022-09-17] MEDS: PANTOPRAZOLE SOD 40 MG TABEC PO SCH (09:06)
[2022-09-17] MEDS: LOSARTAN POTASSIUM 25 MG TAB PO SCH (09:06)
[2022-09-17] MEDS: NIFEDIPINE CR 30 MG TAB PO SCH (09:07)
[2022-09-17] MEDS: OXCARBAZEPINE 300 MG TAB PO SCH (09:07)
[2022-09-17] MEDS: QUETIAPINE FUMARATE 25 MG TAB PO SCH (09:07)
[2022-09-17] MEDS: SERTRALINE HCL 100 MG TAB PO SCH (09:07)
[2022-09-17 09:28] VITALS: BP 165/95
[2022-09-17] MEDS: LORAZEPAM 0.5 MG TAB PO PRN (10:31)
[2022-09-17 12:42] VITALS: BP 162/84
== END 2022-09-17 14:49 | disposition home or self-care (01) | DRG 690 ==
LOC: ER 03:17 → ERHOLD 04:16 → INTOOBSV 04:16 → MED/SURG3 14:58 → OBSVTOIN 09-14 18:11
PROVIDERS: ADMIT Internal Medicine; ATTEND Internal Medicine
DX: N13.6 Pyonephrosis (principal); Z68.41 Body mass index [BMI] 40.0-44.9, adult; N17.9 Acute kidney failure, unspecified; E78.5 Hyperlipidemia, unspecified; F41.9 Anxiety disorder, unspecified; E66.9 Obesity, unspecified; E87.6 Hypokalemia; N40.0 Benign prostatic hyperplasia without lower urinary tract symptoms; I12.9 Hypertensive chronic kidney disease with stage 1 through stage 4 chronic kidney disease, or unspecified chronic kidney disease; F31.9 Bipolar disorder, unspecified; N18.30 Chronic kidney disease, stage 3 unspecified; Z98.890 Other specified postprocedural states; Z87.442 Personal history of urinary calculi; Z88.5 Allergy status to narcotic agent; Z96.653 Presence of artificial knee joint, bilateral; Z20.822 Contact with and (suspected) exposure to COVID-19
CPT/HCPCS: 36415; 74018; 74176; 74400; 80048; 80053; 81001; 82550; 82553; 83690; 84484; 85025; 87086; 93005; 96361; 99284; G0378; J0360; J1170; J1650; J1885; J2405; J2543; J7030; Q9967

== ENCOUNTER 2022-11-10 06:44 | Observation (INO) | payer MEDICARE ==
[2022-11-08 10:42] LABS: BASOPHILS # (AUTO) 0.1 (0.0-0.1); BASOPHILS % 0.8 % (0.0-1.0); EOSINOPHILS # (AUTO) 0.2 (0.0-0.4); EOSINOPHILS % 2.3 % (0.0-6.0); HEMATOCRIT 37.9 % (38.2-49.6); HEMOGLOBIN 12.4 g/dL (14.0-18.0); LYMPHOCYTES # (AUTO) 1.4 (1.0-3.2); LYMPHOCYTES % 16.1 % (18.0-39.1); MEAN CORPUSCULAR HEMOGLOBIN 33.6 pg (28-32); MEAN CORPUSCULAR HGB CONC 32.7 g/dL (31-35); MEAN CORPUSCULAR VOLUME 102.7 fL (81-99); MONOCYTES # (AUTO) 1.3 (0.2-0.8); MONOCYTES % 14.4 % (4.4-11.3); NEUTROPHILS # (AUTO) 5.7 (2.1-6.9); NEUTROPHILS % 65.8 % (38.7-80.0); PLATELET COUNT 166 x10e3/uL (140-360); RED BLOOD COUNT 3.69 x10e6/uL (4.3-5.7); RED CELL DISTRIBUTION WIDTH 13.5 % (11.7-14.4)
[~2022-11-10] VITALS: Ht 188 cm; Wt 142.1 kg
[~2022-11-10 06:44] MED LIST changes: +CEFTRIAXONE 1 GM VIAL ONE; +IBUPROFEN600 MG PO; +IOPAMIDOL 610MG/1ML 300 MG/ML VIAL IV ONE; +LEVOFLOXACIN250 MG PO
[2022-11-10 09:23] VITALS: BP 154/77
[2022-11-10 09:38] VITALS: BP 154/77
[2022-11-10 09:50] VITALS: BP 154/77
[2022-11-10] MEDS ORDERED: ONDANSETRON HCL INJ 2MG/ML 2ML 2 MG/ML VIAL ONE (13:37)
[2022-11-10] MEDS ORDERED: POVIDONE IODINE 0.05% 0.05 % ML PO ONE (13:37)
[2022-11-10] MEDS ORDERED: DEXAMETHASONE SOD PHOS INJ 4 MG/ML SDV ONE (13:37)
[2022-11-10] MEDS ORDERED: LIDOCAINE HCL 2% LOCAL INJ 5 ML SDV VIAL INJ ONE (13:37)
[2022-11-10] MEDS ORDERED: PROPOFOL IV EMULSION 10 MG/ML 20 ML VIAL ONE (13:37)
[2022-11-10] MEDS ORDERED: SEVOFLURANE INHAL SOLN 250 ML PEN BTL ONE (13:37)
[2022-11-10] MEDS ORDERED: EPHEDRINE SULFATE INJ 50 MG/ML VIAL ONE (13:37)
[2022-11-10 17:24] VITALS: BP 145/74
[2022-11-10] MEDS ORDERED: FENTANYL CITRATE/PF 100MCG/2 ML INJ ONE (18:39)
[2022-11-10 21:00] VITALS: BP 165/97
[2022-11-10 21:37] VITALS: BP 166/80
[2022-11-11 00:58] VITALS: BP 153/79
[2022-11-11 06:12] VITALS: BP 150/83
[2022-11-11 08:02] VITALS: BP 144/86
[2022-11-11 08:17] VITALS: BP 144/86
== END 2022-11-11 11:55 | disposition home or self-care (01) ==
LOC: OR 06:44 → PACU V 08:31 → MED/SURG3 09:05
PROVIDERS: ADMIT Internal Medicine; ATTEND Internal Medicine
DX: N13.2 Hydronephrosis with renal and ureteral calculous obstruction (principal); G47.33 Obstructive sleep apnea (adult) (pediatric); E66.01 Morbid (severe) obesity due to excess calories; Z68.41 Body mass index [BMI] 40.0-44.9, adult; N40.1 Benign prostatic hyperplasia with lower urinary tract symptoms; R33.8 Other retention of urine; I10 Essential (primary) hypertension; Z96.0 Presence of urogenital implants
CPT/HCPCS: 0223U; 36415; 50590; 52310; 74018; 74420; 85025; C1758 ×3; C1769; G0378 ×2; J0696; J1100; J2001; J2405; J2704; J3010; Q9967

== ENCOUNTER 2022-12-29 06:51 | Observation (INO) | payer MEDICARE ==
[2022-12-26 11:58] LABS: BASOPHILS # (AUTO) 0.1 (0.0-0.1); BASOPHILS % 0.7 % (0.0-1.0); EOSINOPHILS # (AUTO) 0.2 (0.0-0.4); EOSINOPHILS % 1.7 % (0.0-6.0); HEMATOCRIT 40.3 % (38.2-49.6); HEMOGLOBIN 12.9 g/dL (14.0-18.0); LYMPHOCYTES # (AUTO) 1.7 (1.0-3.2); LYMPHOCYTES % 15.4 % (18.0-39.1); MEAN CORPUSCULAR HEMOGLOBIN 32.5 pg (28-32); MEAN CORPUSCULAR VOLUME 101.5 fL (81-99); MONOCYTES # (AUTO) 1.3 (0.2-0.8); MONOCYTES % 11.7 % (4.4-11.3); NEUTROPHILS # (AUTO) 7.6 (2.1-6.9); PLATELET COUNT 186 x10e3/uL (140-360); RED BLOOD COUNT 3.97 x10e6/uL (4.3-5.7); RED CELL DISTRIBUTION WIDTH 13.7 % (11.7-14.4)
[~2022-12-29] VITALS: Ht 188 cm; Wt 145.1 kg
[2022-12-29] MEDS ORDERED: FENTANYL CITRATE/PF 100MCG/2 ML INJ ONE ×2 (08:24→12:24)
[2022-12-29] MEDS ORDERED: TRAMADOL HCL 50 MG TAB PO PRN (11:00)
[2022-12-29 11:46] VITALS: BP 140/76
[2022-12-29 12:11] VITALS: BP 140/76
[2022-12-29] MEDS ORDERED: POVIDONE IODINE 0.05% 0.05 % ML PO ONE (13:20)
[2022-12-29] MEDS ORDERED: PROPOFOL IV EMULSION 10 MG/ML 20 ML VIAL ONE (13:20)
[2022-12-29] MEDS ORDERED: ONDANSETRON HCL INJ 2MG/ML 2ML 2 MG/ML VIAL ONE (13:20)
[2022-12-29] MEDS ORDERED: SEVOFLURANE INHAL SOLN 250 ML PEN BTL ONE (13:20)
[2022-12-29] MEDS ORDERED: LIDOCAINE HCL 2% LOCAL INJ 5 ML SDV VIAL INJ ONE (13:20)
[2022-12-29 16:37] VITALS: BP 139/70
[2022-12-29] MEDS: MAGNESIUM OXIDE 400 MG TAB PO SCH ×2 (18:00→20:56)
[2022-12-29] MEDS ORDERED: NON-FORMULARY MEDICATION (Magnesium Oxide (Magnesium) 400 MG) PO SCH (18:00)
[2022-12-29] MEDS ORDERED: CYCLOBENZAPRINE HCL 10 MG TAB PO PRN (18:00)
[2022-12-29] MEDS ORDERED: NON-FORMULARY MEDICATION (Cyclobenzaprine Hcl (Flexeril) 10 MG) PO PRN (18:00)
[2022-12-29 19:25] VITALS: BP 155/80
[2022-12-29] MEDS: LORAZEPAM 0.5 MG TAB PO SCH (20:56)
[2022-12-29] MEDS: FISH OIL PO SCH (20:56)
[2022-12-29] MEDS: DHA PO SCH (20:56)
[2022-12-29] MEDS: EPA PO SCH (20:56)
[2022-12-29] MEDS: OMEGA PO SCH (20:56)
[2022-12-29] MEDS ORDERED: ATORVASTATIN 20 MG TAB PO SCH (21:00)
[2022-12-29] MEDS ORDERED: QUETIAPINE FUMARATE 100 MG TAB PO SCH (21:00)
[2022-12-30] VITALS: BP 146/74
[2022-12-30 04:00] VITALS: BP 122/64
[2022-12-30 08:00] VITALS: BP 122/64
[2022-12-30 08:16] VITALS: BP 155/85
[2022-12-30] MEDS ORDERED: ATENOLOL 50 MG TAB PO SCH (09:00)
[2022-12-30] MEDS ORDERED: LOSARTAN POTASSIUM 25 MG TAB PO SCH (09:00)
[2022-12-30] MEDS: MAGNESIUM OXIDE 400 MG TAB PO SCH ×2 (09:00→13:00)
[2022-12-30] MEDS: DHA PO SCH (09:00)
[2022-12-30] MEDS ORDERED: OXCARBAZEPINE 300 MG TAB PO SCH (09:00)
[2022-12-30] MEDS ORDERED: QUETIAPINE FUMARATE 25 MG TAB PO SCH (09:00)
[2022-12-30] MEDS ORDERED: SERTRALINE HCL 100 MG TAB PO SCH (09:00)
[2022-12-30] MEDS: OMEGA PO SCH (09:00)
[2022-12-30] MEDS: EPA PO SCH (09:00)
[2022-12-30] MEDS ORDERED: NON-FORMULARY MEDICATION (Atenolol 25 MG) PO SCH (09:00)
[2022-12-30] MEDS ORDERED: AMLODIPINE BESYLATE 10 MG TAB PO SCH (09:00)
[2022-12-30] MEDS: FISH OIL PO SCH (09:00)
[2022-12-30] MEDS: LORAZEPAM 0.5 MG TAB PO SCH (09:25)
[2022-12-30 12:01] VITALS: BP 140/80
== END 2022-12-30 15:22 | disposition home or self-care (01) ==
LOC: OR 06:51 → PACU V 08:02 → MED/SURG 09:50
PROVIDERS: ADMIT Internal Medicine; ATTEND Internal Medicine
DX: N20.2 Calculus of kidney with calculus of ureter (principal); E66.01 Morbid (severe) obesity due to excess calories; Z68.41 Body mass index [BMI] 40.0-44.9, adult; Z20.822 Contact with and (suspected) exposure to COVID-19; I10 Essential (primary) hypertension; G47.33 Obstructive sleep apnea (adult) (pediatric)
CPT/HCPCS: 0223U; 36415; 52005; 74018; 74420; 85025; C1758 ×2; C1769; G0378 ×2; J0696; J2001; J2405; J2704; J3010; Q9967

== ENCOUNTER 2025-07-11 17:58 | Inpatient (IN) | payer MEDICARE ==
[~2025-07-11] VITALS: Ht 188 cm; Wt 154.2 kg
[~2025-07-11 17:58] MED LIST changes: -CEFTRIAXONE 1 GM VIAL ONE; -IOPAMIDOL 610MG/1ML 300 MG/ML VIAL IV ONE
[2025-07-11 18:26] VITALS: TEMP 98.4
[2025-07-11 18:59] LABS: BASOPHILS % 0.7 % (0.0-1.0); EOSINOPHILS % 2.0 % (0.0-6.0); LYMPHOCYTES % 14.5 % (18.0-39.1); MONOCYTES % 14.0 % (4.4-11.3); NEUTROPHILS % 68.4 % (38.7-80.0); RED CELL DISTRIBUTION WIDTH 14.9 % (11.7-14.4)
[2025-07-11 19:14] LABS: INR 1.07
[2025-07-11 19:24] LABS: EST GLOMERULAR FILTRATION RATE 38.0 ML/MIN (>=60)
[2025-07-11 19:39] VITALS: PULSE 94; RESP 18
[2025-07-11] MEDS: CLOPIDOGREL BISULFATE 75 MG TAB PO ONE (19:56)
[2025-07-11] MEDS: FUROSEMIDE INJ 10 MG/ML 4 ML VIAL IV ONE (19:57)
[2025-07-11] MEDS: ENOXAPARIN INJ 80 MG/0.8 ML SYR SC STA (19:57)
[2025-07-11] MEDS: ASPIRIN 81 MG CHEW TAB PO ONE (19:57)
[2025-07-11] MEDS ORDERED: DEXTROSE 50% SYRINGE 50 ML IV PRN (20:00)
[2025-07-11] MEDS ORDERED: ONDANSETRON HCL INJ 2MG/ML 2ML 2 MG/ML VIAL IV PRN (20:00)
[2025-07-11] MEDS ORDERED: Morphine 2mg Syringe 2 MG/ML SYR IV PRN (20:00)
[2025-07-11] MEDS ORDERED: SODIUM CHLORIDE FLUSH 10 ML SYR INJ PRN (20:00)
[2025-07-11] MEDS: INSULIN REGULAR, HUMAN 100 UNIT/1 ML SQ SCH (21:00)
[2025-07-11 23:07] VITALS: BP 132/58; PULSE 77; RESP 19; TEMP 97.9; O2SAT 98
[2025-07-11 23:08] VITALS: BP 132/58; PULSE 77; RESP 19; TEMP 97.9; O2SAT 98
[2025-07-11 23:10] VITALS: PULSE 77; RESP 18; O2SAT 98
[2025-07-11] MEDS ORDERED: ALLOPURINOL100 MG PO (23:18)
[2025-07-11] MEDS ORDERED: TIZANIDINE HCL4 M1 PO (23:23)
[2025-07-11] MEDS ORDERED: ZINC PO (23:25)
[2025-07-11] MEDS ORDERED: MAGNESIUM PO (23:25)
[2025-07-11] MEDS ORDERED: VITAMIN D3 PO (23:27)
[2025-07-11] MEDS ORDERED: VITAMIN (23:27)
[2025-07-11] MEDS ORDERED: VITAMIN A (23:28)
[2025-07-12] VITALS (7 sets, daily range): BP systolic 141–151; BP diastolic 82–105; PULSE 20–110; RESP 18–22; TEMP 97.9–99.1; O2SAT 96–100
[2025-07-12] MEDS ORDERED: TIZANIDINE HCL 4 MG TAB PO PRN
[2025-07-12] MEDS ORDERED: HYDRALAZINE HCL 20 MG/ML VIAL IV PRN
[2025-07-12] MEDS ORDERED: TRAMADOL HCL 50 MG TAB PO PRN
[2025-07-12] MEDS ORDERED: LORAZEPAM 1 MG TAB PO PRN
[2025-07-12 05:09] LABS: BASOPHILS % 0.7 % (0.0-1.0); EOSINOPHILS % 2.7 % (0.0-6.0); LYMPHOCYTES % 11.8 % (18.0-39.1); MONOCYTES % 15.1 % (4.4-11.3); NEUTROPHILS % 69.2 % (38.7-80.0); RED CELL DISTRIBUTION WIDTH 14.9 % (11.7-14.4)
[2025-07-12 05:31] LABS: CHOL/HDL RATIO 5.2 (3.9-4.7); EST GLOMERULAR FILTRATION RATE 40.0 ML/MIN (>=60); LDL CHOLESTEROL 49.0 MG/DL (60-130)
[2025-07-12] MEDS: METOPROLOL TARTRATE 50 MG TAB PO SCH ×4 (06:36→20:31)
[2025-07-12] MEDS ORDERED: LOSARTAN POTASSIUM 25 MG TAB PO SCH (09:00)
[2025-07-12] MEDS: ASPIRIN 81 MG ENTERIC COATED PO SCH (10:14)
[2025-07-12] MEDS: FUROSEMIDE INJ 10 MG/ML 4 ML VIAL IV SCH (10:14)
[2025-07-12] MEDS: CLOPIDOGREL BISULFATE 75 MG TAB PO SCH (10:15)
[2025-07-12] MEDS: ALLOPURINOL 100 MG TAB PO SCH (10:16)
[2025-07-12] MEDS: SERTRALINE HCL 100 MG TAB PO SCH ×2 (10:16→20:30)
[2025-07-12] MEDS: QUETIAPINE FUMARATE 25 MG TAB PO SCH (10:16)
[2025-07-12] MEDS: OXCARBAZEPINE 300 MG TAB PO SCH ×2 (11:42→20:30)
[2025-07-12] MEDS: DILTIAZEM HCL 30 MG TAB PO SCH (18:00)
[2025-07-12] MEDS ORDERED: DILTIAZEM HCL ER 90MG CAPSULE PO SCH (18:00)
[2025-07-12] MEDS ORDERED: ASPIRIN 81 MG CHEW TAB PO ONE (20:00)
[2025-07-12] MEDS: QUETIAPINE FUMARATE 100 MG TAB PO SCH (20:29)
[2025-07-12] MEDS: ATORVASTATIN 40 MG TAB PO SCH (20:29)
[2025-07-12] MEDS: ENOXAPARIN SOD INJ 120 MG/0.8 ML SYR SC SCH (20:31)
[2025-07-13] VITALS (10 sets, daily range): BP systolic 117–169; BP diastolic 68–128; PULSE 78–110; RESP 16–20; TEMP 97.6–99.8; O2SAT 95–99
[2025-07-13] MEDS: FUROSEMIDE INJ 10 MG/ML 4 ML VIAL IV SCH (05:19)
[2025-07-13 05:50] LABS: EST GLOMERULAR FILTRATION RATE 50.0 ML/MIN (>=60)
[2025-07-13 06:12] LABS: PHOSPHORUS 3.7 MG/DL (2.3-4.7)
[2025-07-13] MEDS: LOSARTAN POTASSIUM 100 MG TAB PO SCH (10:57)
[2025-07-13] MEDS: CALCIUM CARBONATE 500 MG CHEWABLE TABS PO PRN (15:43)
[2025-07-13] MEDS: ACETAMINOPHEN 325 MG TAB PO PRN (20:36)
[2025-07-14] VITALS (12 sets, daily range): BP systolic 113–176; BP diastolic 68–101; PULSE 79–115; RESP 18–22; TEMP 98.1–100.3; O2SAT 96–100
[2025-07-14 04:58] LABS: BASOPHILS % 0.8 % (0.0-1.0); EOSINOPHILS % 1.5 % (0.0-6.0); LYMPHOCYTES % 11.2 % (18.0-39.1); MONOCYTES % 15.7 % (4.4-11.3); NEUTROPHILS % 70.3 % (38.7-80.0); RED CELL DISTRIBUTION WIDTH 14.6 % (11.7-14.4)
[2025-07-14 05:28] LABS: EST GLOMERULAR FILTRATION RATE 46.0 ML/MIN (>=60)
[2025-07-14] MEDS: FUROSEMIDE 40 MG TAB PO SCH (08:28)
[2025-07-15] VITALS (9 sets, daily range): BP systolic 122–136; BP diastolic 73–94; PULSE 70–105; RESP 18–20; TEMP 97.8–99.4; O2SAT 95–100
[2025-07-15 04:44] LABS: BASOPHILS % 0.5 % (0.0-1.0); EOSINOPHILS % 2.7 % (0.0-6.0); LYMPHOCYTES % 12.1 % (18.0-39.1); MONOCYTES % 15.1 % (4.4-11.3); NEUTROPHILS % 69.0 % (38.7-80.0); RED CELL DISTRIBUTION WIDTH 14.6 % (11.7-14.4)
[2025-07-15 05:04] LABS: INR 1.17
[2025-07-15 05:15] LABS: EST GLOMERULAR FILTRATION RATE 40.0 ML/MIN (>=60)
[2025-07-15 05:43] LABS: % IRON SATURATION 11 % (15-50)
[2025-07-15] MEDS: CEPHALEXIN 500 MG CAP PO SCH ×2 (10:29→17:48)
[2025-07-15] MEDS: DILTIAZEM HCL ER 120 MG CAP PO SCH (10:30)
[2025-07-15] MEDS: METOPROLOL SUCCINATE 50 MG TAB XL PO SCH (10:32)
[2025-07-15] MEDS: CYANOCOBALAMIN INJ 1,000 MCG/ML VIAL IM ONE (22:58)
[2025-07-16 06:33] VITALS: BP 169/84; PULSE 116; RESP 18; TEMP 98; O2SAT 100
[2025-07-16 06:40] VITALS: PULSE 96; RESP 22; O2SAT 95
[2025-07-16] MEDS: IRON SUCROSE 100 MG in SODIUM CHLORIDE 0.9% 100 ML IV SCH (08:08)
[2025-07-16 08:10] VITALS: BP 113/85; PULSE 118; RESP 16; TEMP 99.9; O2SAT 99
[2025-07-16] MEDS: CYANOCOBALAMIN INJ 1,000 MCG/ML VIAL IM SCH (08:10)
[2025-07-16 09:06] LABS: BASOPHILS % 0.8 % (0.0-1.0); EOSINOPHILS % 2.7 % (0.0-6.0); LYMPHOCYTES % 10.4 % (18.0-39.1); MONOCYTES % 14.9 % (4.4-11.3); NEUTROPHILS % 70.9 % (38.7-80.0); RED CELL DISTRIBUTION WIDTH 14.5 % (11.7-14.4)
[2025-07-16 09:32] LABS: EST GLOMERULAR FILTRATION RATE 41.0 ML/MIN (>=60)
[2025-07-16] MEDS: APIXABAN 5 MG TABLET PO SCH (10:33)
[2025-07-16 11:53] VITALS: BP 129/91; PULSE 97; RESP 16; TEMP 98.8; O2SAT 98
[2025-07-16 16:31] VITALS: BP 142/90; PULSE 91; RESP 16; TEMP 99.5; O2SAT 97
== END 2025-07-16 18:57 | disposition home or self-care (01) | DRG 280 ==
LOC: ER 18:23 → ERHOLD 19:56 → MED/SURG 22:35
PROVIDERS: ADMIT Internal Medicine; ATTEND Internal Medicine
DX: I11.0 Hypertensive heart disease with heart failure (principal); G92.8 Other toxic encephalopathy; I21.A1 Myocardial infarction type 2; I50.43 Acute on chronic combined systolic (congestive) and diastolic (congestive) heart failure; K57.33 Diverticulitis of large intestine without perforation or abscess with bleeding; D68.32 Hemorrhagic disorder due to extrinsic circulating anticoagulants; R47.01 Aphasia; E66.2 Morbid (severe) obesity with alveolar hypoventilation; N13.2 Hydronephrosis with renal and ureteral calculous obstruction; K62.5 Hemorrhage of anus and rectum; Z68.41 Body mass index [BMI] 40.0-44.9, adult; I48.19 Other persistent atrial fibrillation; N39.0 Urinary tract infection, site not specified; E11.9 Type 2 diabetes mellitus without complications; D50.9 Iron deficiency anemia, unspecified; D51.9 Vitamin B12 deficiency anemia, unspecified; N18.31 Chronic kidney disease, stage 3a; E78.5 Hyperlipidemia, unspecified; I35.0 Nonrheumatic aortic (valve) stenosis; K21.9 Gastro-esophageal reflux disease without esophagitis; R44.1 Visual hallucinations; M10.9 Gout, unspecified; F41.9 Anxiety disorder, unspecified; R68.81 Early satiety; M47.892 Other spondylosis, cervical region; M47.896 Other spondylosis, lumbar region; M19.90 Unspecified osteoarthritis, unspecified site; F31.9 Bipolar disorder, unspecified; Z79.82 Long term (current) use of aspirin; Z87.442 Personal history of urinary calculi; Z98.61 Coronary angioplasty status; Z98.1 Arthrodesis status; Z88.5 Allergy status to narcotic agent; Z82.49 Family history of ischemic heart disease and other diseases of the circulatory system
CPT/HCPCS: 36415; 70450; 70551; 71045; 74176; 80048; 80053; 80061; 82140; 82550; 82607; 82746; 82948; 83540; 83735; 83880; 84100; 84443; 84466; 84484; 85025; 85045; 85610; 85730; 93005; 93306; 94799; 95812; 99252; 99284; J1650; J1756; J1938; J3420; J7050